=== PATIENT | female | born 1955 | race Caucasian/White ===

== ENCOUNTER 2018-12-19 06:16 | Observation (INO) | payer MEDICARE, MEDICAID ==
[2018-12-13 14:33] LABS: BASOPHILS % (AUTO) 0.4 % (0-1); EOSINOPHILS # (AUTO) 0.1 X10'3 (0-0.9); EOSINOPHILS % (AUTO) 1.3 % (0-6); LYMPHOCYTES # (AUTO) 1.8 X10'3 (1.1-4.8); LYMPHOCYTES % (AUTO) 23.9 % (21-51); MEAN CORPUSCULAR HGB CONC 33.6 g/dL (33.0-36.5); MEAN CORPUSCULAR VOLUME 95.3 FL (78-98); MEAN PLATELET VOLUME 7.7 FL (7.4-10.4); MONOCYTES # (AUTO) 0.7 X10'3 (0-0.9); MONOCYTES % (AUTO) 9.8 % (2-12); NEUTROPHILS # (AUTO) 4.8 X10'3 (1.8-7.7); NEUTROPHILS % (AUTO) 64.6 % (42-75); PRE OP HEMATOCRIT 42.7 % (35.0-45.0); PRE OP HEMOGLOBIN 14.3 g/dL (12.0-16.0); PRE OP PLATELET COUNT 265 X10'3 (140-440); RED BLOOD COUNT 4.48 X10'6 (4.20-5.60); RED CELL DISTRIBUTION WIDTH 13.7 % (11.5-14.5)
[2018-12-13 14:56] LABS: ALBUMIN 3.4 G/DL (3.4-5.0); ALBUMIN/GLOBULIN RATIO 0.9 (1.1-1.5); ALKALINE PHOSPHATASE 125 IU/L (46-116); BLOOD UREA NITROGEN 21 MG/DL (7-18); BUN/CREATININE RATIO 18.4 (6.6-38.0); CALCIUM 8.8 MG/DL (8.5-10.1); CHLORIDE 107 MMOL/L (99-107); CREATININE 1.14 MG/DL (0.40-0.90); PRE OP ALT 40 U/L (30-65); PRE OP ANION GAP 10 (8-16); PRE OP AST 29 U/L (10-37); PRE OP BILIRUB, TOTAL 0.2 MG/DL (0.0-1.0); PRE OP GLUCOSE 75 MG/DL (70-104); PRE OP POTASSIUM 3.9 MMOL/L (3.4-5.1); PRE OP SODIUM 141 MMOL/L (135-145); TOTAL CARBON DIOXIDE 23.6 MMOL/L (24-32); TOTAL PROTEIN 7.3 G/DL (6.4-8.2); eGFR 48 ML/MIN
[~2018-12-19] VITALS: Ht 157.5 cm; Wt 88.5 kg
[2018-12-19] VITALS (19 sets, daily range): BP systolic 92–139; BP diastolic 49–96
[~2018-12-19 06:16] MED LIST: ASPI-1265 PO; CETI-102 PO; DICL100G30 TOP; DULO30CA52 PO; DULO60CA65 PO; LEVO100T9 PO; LOSA100T57 PO
[2018-12-19] MEDS ORDERED: LIDOcaine 1% (10mg/ml) 2ml vial ONE (06:51)
[2018-12-19] MEDS ORDERED: cefazolin/dext.iso 2gm/100 ML IV ONE (07:30)
[2018-12-19] MEDS ORDERED: ringers solution, lacted 1,000 ML IV SCH ×2 (07:30→10:12)
[2018-12-19] MEDS ORDERED: tranexamic acid inj. 900 MG in normal saline 100ml IV soln 100 ML IV ONE ×2 (07:30→10:30)
[2018-12-19] MEDS ORDERED: VANCOMYCIN INJ 1000 MG in NORMAL SALINE 250ml IV.SOLN IV ONE (07:30)
[2018-12-19] MEDS ORDERED: famotidine 20mg tablet PO ONE (07:30)
[2018-12-19] MEDS ORDERED: LIDOcaine 1%/PF 5ML 10 MG/ML VIAL ONE (08:52)
[2018-12-19] MEDS ORDERED: sevoflurane 250ml liquid IH ONE (08:52)
[2018-12-19] MEDS ORDERED: fentaNYL/PF 50MCG/1 ML 2ML syringe ONE (09:01)
[2018-12-19] MEDS ORDERED: MIDAZolam 5mg/5ml vial ONE (09:01)
[2018-12-19] MEDS ORDERED: ROPIVAcaine 0.5% (5mg/ml) 30ml vial ONE ×2 (09:02→10:20)
[2018-12-19] MEDS ORDERED: propofol inj 20 ML IV ONE (09:30)
[2018-12-19] MEDS ORDERED: ondansetron/PF 4mg/2ml inj ONE (09:43)
[2018-12-19] MEDS ORDERED: dexamethasone sod phosphate 4mg/ml inj. ONE (09:43)
[2018-12-19] MEDS ORDERED: morphine 4 MG/ML inj SYRINge IV PRN ×2 (10:15)
[2018-12-19] MEDS ORDERED: meperidine/PF 25mg/ml syringe IV PRN ×3 (10:15)
[2018-12-19] MEDS ORDERED: ondansetron/PF 4mg/2ml inj IV PRN ×2 (10:15→11:30)
[2018-12-19] MEDS ORDERED: proCHLORperazine 10 MG/2 ml inj IV PRN (10:15)
[2018-12-19] MEDS ORDERED: ketorolac trometh. 30mg/ml inj. ONE (10:20)
[2018-12-19] MEDS ORDERED: ROPIVAcaine 0.2%/PF PAIN PUMP 400 ML IJ SCH (10:27)
[2018-12-19] MEDS ORDERED: HYDROmorphone inj. 0.5 MG/0.5 ML DISP.SYRIN IV PRN (11:30)
[2018-12-19] MEDS ORDERED: acetaminophen 325mg tablet PO PRN (11:30)
[2018-12-19] MEDS ORDERED: oxyCODONE IR 5mg (immed. release) tablet PO PRN (11:30)
[2018-12-19] MEDS ORDERED: magnesium hydroxide 30ml (MOM) UD suspension PO PRN (11:30)
[2018-12-19] MEDS ORDERED: bisacodyl 10mg suppository rectal RC PRN (11:30)
[2018-12-19] MEDS ORDERED: HYDROmorphone 1 mg/ml syringe IV PRN (11:30)
[2018-12-19] MEDS ORDERED: diphenhydrAMINE 25mg capsule PO PRN ×2 (11:30)
--- NOTE | 2018-12-19 11:35 | NUR ---
Received from OR via BED, accompanied by Anesthesiologist DR POLO and report given by Anesthesiologist. PT DROWSY, DENIES PAIN, MCCARTY'S X 4, HAS SOME SENSATION TO LEFT HAND/WRIST IS ABLE TO WIGGLE FINGERS. LEFT SHOULDER W/ISLAND DRSG COVERING INCISION, SHOULDER WRAP W/ICE PACK CDI. Addendum: 12/19/18 at 1207 by Leatha Hurst RN Amended: Links added.
--- NOTE | 2018-12-19 12:55 | NUR ---
Report called to receiving nurse. Transferred via BED, NO Belongings, RECEIVING RN AT BEDSIDE TO RECEIVE PT, BLL, CALL LIGHT GIVEN, SIDE RAILS UP X 2, PT REMAINS COMFORTABLE. Special Issues communicated to receiving nurse. YES. Addendum: 12/19/18 at 1315 by Leatha Hurst RN Amended: Links added.
[2018-12-19] MEDS: DICLOFENAC TOP SCH ×3 (13:00→20:38)
[2018-12-19] MEDS: acetaminophen 325mg tablet PO SCH ×2 (14:02→20:28)
[2018-12-19] MEDS: potassium cl 20mEq in 1/2 NS 1,000 ML IV SCH ×2 (14:07→20:39)
[2018-12-19] MEDS ORDERED: tranexamic acid inj. 880 MG in normal saline 100ml IV soln 100 ML IV ONE (14:30)
[2018-12-19] MEDS: ceFAZolin 1GM/D5W- ADD-VANTAGE 50 ML IV SCH ×2 (16:40→23:59)
[2018-12-19] MEDS: oxyCODONE IR 5mg (immed. release) tablet PO PRN ×2 (17:54→22:30)
[2018-12-19] MEDS ORDERED: vancomycin/NS 1 GM ADD-VANTAGE 250 ML IV SCH (20:00)
[2018-12-19] MEDS ORDERED: sennosides 8.6mg tablet PO SCH (21:00)
[2018-12-20] MEDS: oxyCODONE IR 5mg (immed. release) tablet PO PRN ×2 (02:07→05:45)
[2018-12-20] MEDS: acetaminophen 325mg tablet PO SCH ×2 (02:09→08:01)
[2018-12-20 02:38] VITALS: BP 121/70
[2018-12-20] MEDS: potassium cl 20mEq in 1/2 NS 1,000 ML IV SCH (05:40)
[2018-12-20 06:09] LABS: BASOPHILS % (AUTO) 0.1 % (0-1); EOSINOPHILS % (AUTO) 0 % (0-6); HEMATOCRIT 31.3 % (35.0-45.0); HEMOGLOBIN 10.5 g/dl (12.0-16.0); LYMPHOCYTES # (AUTO) 1.3 X10'3 (1.1-4.8); LYMPHOCYTES % (AUTO) 8.7 % (21-51); MEAN CORPUSCULAR HEMOGLOBIN 31.9 PG (27.0-31.0); MEAN CORPUSCULAR HGB CONC 33.6 g/dL (33.0-36.5); MEAN CORPUSCULAR VOLUME 94.7 FL (78-98); MEAN PLATELET VOLUME 7.7 FL (7.4-10.4); MONOCYTES # (AUTO) 1.6 X10'3 (0-0.9); MONOCYTES % (AUTO) 10.7 % (2-12); NEUTROPHILS # (AUTO) 12.1 X10'3 (1.8-7.7); NEUTROPHILS % (AUTO) 80.5 % (42-75); PLATELET COUNT 203 X10'3 (140-440); RED CELL DISTRIBUTION WIDTH 13.2 % (11.5-14.5)
[2018-12-20 06:22] LABS: ANION GAP 8 (8-16); CHLORIDE 109 MMOL/L (99-107); POTASSIUM 4.8 MMOL/L (3.5-5.1); SODIUM 139 MMOL/L (135-145); TOTAL CARBON DIOXIDE 22.5 MMOL/L (24-32)
--- NOTE | 2018-12-20 06:45 | NUR ---
Problems reprioritized. Patient report given, questions answered & plan of care reviewed with DAYSI CABAN.
--- NOTE | 2018-12-20 06:48 | NUR ---
Patient in room [facility]TH[facility] 4023. I have received report from DAYSI SNYDER and had the opportunity to ask questions and assume patient care.
[2018-12-20 07:07] VITALS: BP 114/72
[2018-12-20] MEDS ORDERED: aspirin 81mg tab.chew PO SCH (08:00)
[2018-12-20] MEDS ORDERED: cetirizine 10mg tablet PO SCH (08:00)
[2018-12-20] MEDS ORDERED: levoTHYROXINE 100mcg tablet PO SCH (08:00)
[2018-12-20] MEDS ORDERED: DULOXETINE HCL PO SCH (08:00)
[2018-12-20] MEDS: DICLOFENAC TOP SCH (08:00)
[2018-12-20] MEDS ORDERED: losartan 50mg tablet PO SCH (08:00)
[2018-12-20] MEDS ORDERED: duloxetine 30mg CAPSULE.DR PO SCH (08:00)
[2018-12-20] MEDS ORDERED: aspirin 325mg tablet PO SCH (08:30)
[2018-12-20] MEDS ORDERED: DICL100G15 TOP (08:43)
--- NOTE | 2018-12-20 09:43 | NUR ---
PATIENT IS A&O AND IN NO APPARENT DISTRESS. DISCUSSED WITH PATIENT DISCHARGE INSTRUCTION AND PRESCRIPTION. INSTRUCTION FOR ONQ GIVEN TO PATIENT AND ALSO DISCUSSED WHEN AND HOW TO REMOVE. . PATIENT VERBALIZES UNDERSTANDING OF TEACHING. PRESCRIPTION CALLED TO SHANNAN BRENNER. X2 ISLAND DRESSING GIVEN TO PATIENT AND SHE HAS HER COLD SANDBAG THERAPY ON HER LEFT SHOULDER WITH SLING ON. PATIENT IS AT BEDSIDE AND WILL BE PATIENT'S TRANSPORT HOME.
--- NOTE | 2018-12-20 09:52 | NUR ---
PATIENT A&O AND IN NO APPARENT DISTRESS AT TIME OF DISCHARGE. PATIENT DISCHARGED WITH ALL PERSONAL BELONGINGS ACCOMPANIED BY AND X1 STAFF.
[2018-12-21] MEDS ORDERED: acetaminophen 325mg tablet PO PRN (11:30)
== END 2018-12-20 10:00 | disposition home or self-care (01) ==
LOC: INTOOBSV 06:16 → PAS IN 06:16 → EDSTATUS 07:30 → ORTHO 4S 13:30
PROVIDERS: ADMIT Orthopaedic Surgery; ATTEND Orthopaedic Surgery
PROC: 0LS40ZZ Reposition Left Upper Arm Tendon, Open Approach (ICD-10-PCS; 2018-12-19)
PROC: 0RRK00Z Replacement of Left Shoulder Joint with Reverse Ball and Socket Synthetic Substitute, Open Approach (ICD-10-PCS; principal; 2018-12-19 09:02)
DX: M19.012 Primary osteoarthritis, left shoulder (principal); D62 Acute posthemorrhagic anemia; I10 Essential (primary) hypertension; E03.9 Hypothyroidism, unspecified; M25.512 Pain in left shoulder
CPT/HCPCS: 23472; 36415; 80051; 80053; 82948; 84443; 85025; 87081; 97110; 97161; 97530; C1776; G0378; J0690; J1100; J1885; J2001; J2250; J2405; J2704; J2795; J3010; J3370; J7120; Q0163; A4565; A4618; A7000; J3480

== ENCOUNTER 2019-03-30 02:48 | Emergency (ER) | payer MEDICARE, MEDICAID ==
[~2019-03-30] VITALS: Ht 157.5 cm; Wt 84.6 kg
[~2019-03-30 02:48] MED LIST changes: +DICL100G15 TOP
--- NOTE | 2019-03-30 03:40 | NUR ---
PT UP OUT OF BED TO ATTEMPT A VOID FOR A SPECIMAN . UNSUCCESSFUL
[2019-03-30 03:42] LABS: BASOPHILS % (AUTO) 0.4 % (0-1); EOSINOPHILS # (AUTO) 0.1 X10'3 (0-0.9); EOSINOPHILS % (AUTO) 0.6 % (0-6); HEMOGLOBIN 12.7 g/dl (12.0-16.0); LYMPHOCYTES # (AUTO) 1.5 X10'3 (1.1-4.8); LYMPHOCYTES % (AUTO) 14.1 % (21-51); MEAN CORPUSCULAR HEMOGLOBIN 30.3 PG (27.0-31.0); MEAN CORPUSCULAR HGB CONC 33.4 g/dL (33.0-36.5); MEAN CORPUSCULAR VOLUME 90.6 FL (78-98); MONOCYTES # (AUTO) 0.8 X10'3 (0-0.9); MONOCYTES % (AUTO) 7.9 % (2-12); NEUTROPHILS # (AUTO) 8.2 X10'3 (1.8-7.7); PLATELET COUNT 261 X10'3 (140-440); RED BLOOD COUNT 4.19 X10'6 (4.20-5.60); RED CELL DISTRIBUTION WIDTH 14.7 % (11.5-14.5); WHITE BLOOD COUNT 10.7 X10'3 (4.5-11.0)
[2019-03-30] MEDS ORDERED: morphine 4 MG/ML inj SYRINge IV ONE (03:55)
[2019-03-30] MEDS ORDERED: ondansetron/PF 4mg/2ml inj IV ONE (03:55)
--- NOTE | 2019-03-30 03:55 | NUR ---
PT TO CT VIA WHEEL CHAIR
[2019-03-30 03:58] LABS: ALANINE AMINOTRANSFERASE 19 U/L (12-78); ALBUMIN 3.2 G/DL (3.4-5.0); ALBUMIN/GLOBULIN RATIO 0.9 (1.1-1.5); ALKALINE PHOSPHATASE 120 IU/L (46-116); ANION GAP 11 (8-16); ASPARTATE AMINO TRANSFERASE 18 U/L (10-37); BILIRUBIN,TOTAL 0.2 MG/DL (0.1-1.0); BLOOD UREA NITROGEN 24 MG/DL (7-18); BUN/CREATININE RATIO 18.9 (6.6-38.0); CALCIUM 8.3 MG/DL (8.5-10.1); CHLORIDE 107 MMOL/L (99-107); CREATININE 1.27 MG/DL (0.40-0.90); GLUCOSE 141 MG/DL (70-104); LIPASE 840 U/L (73-393); POTASSIUM 4.3 MMOL/L (3.5-5.1); SODIUM 141 MMOL/L (135-145); TOTAL CARBON DIOXIDE 23.1 MMOL/L (24-32); TOTAL PROTEIN 6.8 G/DL (6.4-8.2); eGFR 42 ML/MIN
[2019-03-30] MEDS ORDERED: ketorolac tromethamine 15mg/ml inj. IV ONE (05:00)
--- NOTE | 2019-03-30 05:05 | NUR ---
PT COMFORTABLE. CT SHOWS LEFT SIDE 1-2 MM KIDNEY STONE . UPDATED POC WITH PATIENT . NOTIFIED DR SUGGS OF CT RESULTS AND PT REQUEST TO HAVE WATER. ENCOURAGED PT TO HAVE WATER SO A URINE SPECIMAN CAN BE OBTAINED
[2019-03-30] MEDS ORDERED: ONDA4TAB6 PO ×2 (05:20→05:38)
[2019-03-30] MEDS ORDERED: HYDR-4353 PO ×2 (05:20→05:38)
[2019-03-30] MEDS ORDERED: TADA20TA PO ×2 (05:20→05:38)
[2019-03-30 05:40] LABS: CLARITY,URINE SLIGHTLY CLOUDY (Clear); COLOR,URINE YELLOW (Yellow); GLUCOSE, URINE NEGATIVE (Neg); KETONES,URINE NEGATIVE (Neg); LEUKOCYTE ESTERASE ,URINE NEGATIVE (Neg); NITRITES, URINE NEGATIVE (Neg); OCCULT BLOOD,URINE MODERATE (Neg); PH,URINE 5.5 (4.8-8.0); PROTEIN,URINE NEGATIVE (Neg); UROBILINOGEN,URINE 0.2 E.U/dL (0.2-1.0)
[2019-03-30 05:41] LABS: UA COLLECTION TYPE CLN CATCH MIDSTREAM
[2019-03-30 05:51] LABS: BACTERIA,URINE FEW /HPF (Neg); CAL OXALATE CRYSTALS 3+ /HPF (NEGATIVE); MUCUS STRANDS NONE SEEN /LPF (Neg); RBC,URINE 20-50 /HPF (0-2); SQUAMOUS EPITHELIAL CELL,UR FEW /LPF (FEW); WBC,URINE 0-4 /HPF (0-4)
[2019-03-30 06:05] VITALS: BP 156/72
== END 2019-03-30 05:45 | disposition home or self-care (01) ==
LOC: ER 02:49
DX: R10.32 Left lower quadrant pain (principal); N20.0 Calculus of kidney; N18.9 Chronic kidney disease, unspecified; Z98.0 Intestinal bypass and anastomosis status; Z98.890 Other specified postprocedural states; Z91.013 Allergy to seafood; Z91.018 Allergy to other foods; Z79.82 Long term (current) use of aspirin; Z79.899 Other long term (current) drug therapy
CPT/HCPCS: 36415; 74176; 80053; 81001; 83690; 85025; 96374; 96375; 99284; J1885; J2270; J2405

== ENCOUNTER 2019-06-21 07:11 | Emergency (ER) | payer MEDICARE, MEDICAID ==
[~2019-06-21] VITALS: Ht 157.5 cm; Wt 90.0 kg
[~2019-06-21 07:11] MED LIST changes: -CETI-102 PO; +CETI-90 PO; +HYDR-4353 PO; +ONDA4TAB6 PO; +TADA20TA PO
[2019-06-21] MEDS ORDERED: SUMAtriptan succ. 6 MG/0.5ml vial SQ ONE (08:35)
[2019-06-21 09:25] VITALS: BP 152/72
[2019-06-21] MEDS ORDERED: SUMA25TA35 PO (09:52)
== END 2019-06-21 10:45 | disposition home or self-care (01) ==
LOC: ER 07:12
DX: G43.909 Migraine, unspecified, not intractable, without status migrainosus (principal); Z98.0 Intestinal bypass and anastomosis status; Z98.890 Other specified postprocedural states; Z91.018 Allergy to other foods; Z91.013 Allergy to seafood; Z88.1 Allergy status to other antibiotic agents; Z88.2 Allergy status to sulfonamides; Z79.82 Long term (current) use of aspirin; Z79.899 Other long term (current) drug therapy
CPT/HCPCS: 96372; 99284; J3030

== ENCOUNTER 2019-07-03 18:40 | Emergency (ER) | payer MEDICARE, MEDICAID ==
[~2019-07-03] VITALS: Ht 157.5 cm; Wt 90.9 kg
[~2019-07-03 18:40] MED LIST changes: +SUMA25TA35 PO
[2019-07-03 20:51] LABS: ALANINE AMINOTRANSFERASE 19 U/L (12-78); ALBUMIN 3.4 G/DL (3.4-5.0); ALBUMIN/GLOBULIN RATIO 0.9 (1.1-1.5); ALKALINE PHOSPHATASE 139 IU/L (46-116); ANION GAP 11 (8-16); BILIRUBIN,TOTAL 0.2 MG/DL (0.1-1.0); BLOOD UREA NITROGEN 18 MG/DL (7-18); BUN/CREATININE RATIO 18.6 (6.6-38.0); CALCIUM 9.6 MG/DL (8.5-10.1); CHLORIDE 108 MMOL/L (99-107); CREATININE 0.97 MG/DL (0.40-0.90); GLUCOSE 96 MG/DL (70-104); SODIUM 141 MMOL/L (135-145); TOTAL CARBON DIOXIDE 22.5 MMOL/L (24-32); TOTAL PROTEIN 7.3 G/DL (6.4-8.2); eGFR 58 ML/MIN
[2019-07-03 20:52] LABS: ASPARTATE AMINO TRANSFERASE 23 U/L (10-37); POTASSIUM 4.8 MMOL/L (3.5-5.1)
[2019-07-03 21:16] LABS: BASOPHILS # (AUTO) 0.1 X10'3 (0-0.2); BASOPHILS % (AUTO) 0.8 % (0-1); EOSINOPHILS # (AUTO) 0.2 X10'3 (0-0.9); EOSINOPHILS % (AUTO) 2.7 % (0-6); HEMATOCRIT 39.6 % (35.0-45.0); HEMOGLOBIN 13.2 g/dl (12.0-16.0); LYMPHOCYTES # (AUTO) 2.7 X10'3 (1.1-4.8); LYMPHOCYTES % (AUTO) 36.2 % (21-51); MEAN CORPUSCULAR HEMOGLOBIN 29.2 PG (27.0-31.0); MEAN CORPUSCULAR HGB CONC 33.3 g/dL (33.0-36.5); MEAN CORPUSCULAR VOLUME 87.6 FL (78-98); MEAN PLATELET VOLUME 7.3 FL (7.4-10.4); MONOCYTES % (AUTO) 13.6 % (2-12); NEUTROPHILS # (AUTO) 3.5 X10'3 (1.8-7.7); NEUTROPHILS % (AUTO) 46.7 % (42-75); PLATELET COUNT 325 X10'3 (140-440); RED BLOOD COUNT 4.52 X10'6 (4.20-5.60); RED CELL DISTRIBUTION WIDTH 14.6 % (11.5-14.5); WHITE BLOOD COUNT 7.5 X10'3 (4.5-11.0)
[2019-07-03] MEDS ORDERED: DOXY100C2 PO (21:34)
[2019-07-03] MEDS ORDERED: MET0.75G TP (21:34)
[2019-07-03] MEDS ORDERED: cloNIDine 0.1 mg tablet PO ONE (21:40)
[2019-07-03 22:47] VITALS: BP 168/110
[2019-07-05] MEDS ORDERED: PRED50TA PO (20:04)
== END 2019-07-03 22:43 | disposition home or self-care (01) ==
LOC: ER 18:41
DX: R21 Rash and other nonspecific skin eruption (principal); G43.909 Migraine, unspecified, not intractable, without status migrainosus; E03.9 Hypothyroidism, unspecified; Z98.890 Other specified postprocedural states; Z91.018 Allergy to other foods; Z88.8 Allergy status to other drugs, medicaments and biological substances; Z79.82 Long term (current) use of aspirin; Z79.899 Other long term (current) drug therapy
CPT/HCPCS: 36415; 71045; 80053; 84484; 85025; 93005; 99285

== ENCOUNTER 2019-09-15 09:35 | Emergency (ER) | payer MEDICARE, MEDICAID ==
[~2019-09-15] VITALS: Ht 157.5 cm; Wt 91.5 kg
[~2019-09-15 09:35] MED LIST changes: +ASPI-1 PO; -ASPI-1265 PO; -DICL100G15 TOP; -DULO30CA52 PO; -DULO60CA65 PO; +FLUT16SP2 BOTHNARES; -LEVO100T9 PO; -LOSA100T57 PO; +LOSA25TA96 PO; +MULT-1219 PO; -ONDA4TAB6 PO; +ONQPUMP ADDCANAL; -SUMA25TA35 PO; +SUMA50TA PO; +SYN0.088T PO; -TADA20TA PO
[2019-09-15 09:40] VITALS: BP 148/81
[2019-09-15] MEDS ORDERED: HYDR-4353 PO (10:19)
[2019-09-15] MEDS ORDERED: HYDROcodone/acetaminophen 10/325mg tab PO ONE (10:35)
== END 2019-09-15 10:46 | disposition home or self-care (01) ==
LOC: ER 09:36
DX: T84.84XA Pain due to internal orthopedic prosthetic devices, implants and grafts, initial encounter (principal); M25.561 Pain in right knee; E03.9 Hypothyroidism, unspecified; Z98.0 Intestinal bypass and anastomosis status; Z98.890 Other specified postprocedural states; Z91.013 Allergy to seafood; Z88.2 Allergy status to sulfonamides; Z88.1 Allergy status to other antibiotic agents; Z91.018 Allergy to other foods; Z79.82 Long term (current) use of aspirin; Z79.899 Other long term (current) drug therapy; Y83.9 Surgical procedure, unspecified as the cause of abnormal reaction of the patient, or of later complication, without mention of misadventure at the time of the procedure; Y92.89 Other specified places as the place of occurrence of the external cause
CPT/HCPCS: 99284

== ENCOUNTER 2019-09-28 08:32 | Emergency (ER) | payer MEDICARE, MEDICAID ==
[~2019-09-28] VITALS: Ht 157.5 cm; Wt 91.8 kg
[2019-09-28] MEDS ORDERED: ketorolac tromethamine 15mg/ml inj. IM ONE (09:45)
[2019-09-28] MEDS ORDERED: gabapentin 400mg capsule PO STA (09:48)
[2019-09-28] MEDS ORDERED: gabapentin 300mg capsule PO STA (09:50)
[2019-09-28] MEDS ORDERED: GABA300C PO (09:51)
[2019-09-28 10:40] VITALS: BP 134/86
== END 2019-09-28 10:43 | disposition home or self-care (01) ==
LOC: ER 08:33
DX: G89.18 Other acute postprocedural pain (principal); M25.561 Pain in right knee; M17.11 Unilateral primary osteoarthritis, right knee; G43.909 Migraine, unspecified, not intractable, without status migrainosus; I10 Essential (primary) hypertension; E03.9 Hypothyroidism, unspecified; Z90.49 Acquired absence of other specified parts of digestive tract; Z98.890 Other specified postprocedural states; Z91.018 Allergy to other foods; Z88.2 Allergy status to sulfonamides; Z91.013 Allergy to seafood; Z88.8 Allergy status to other drugs, medicaments and biological substances; Z79.82 Long term (current) use of aspirin; Z79.899 Other long term (current) drug therapy
CPT/HCPCS: 96372; 99283; J1885

== ENCOUNTER 2021-02-23 08:41 | Inpatient (IN) | payer MEDICARE, MEDICAID ==
[~2021-02-23] VITALS: Ht 157.5 cm; Wt 86.4 kg
[~2021-02-23 08:41] MED LIST changes: +GABA300C PO
[2021-02-23] MEDS ORDERED: acetaminophen 325mg tablet PO STA (08:56)
[2021-02-23] MEDS ORDERED: aspirin 325mg tablet, delayed-release (Ecotrin) PO ONE (09:05)
[2021-02-23 09:24] LABS: BASOPHILS % (AUTO) 0.7 % (0-1); EOSINOPHILS # (AUTO) 0.1 X10'3 (0-0.9); EOSINOPHILS % (AUTO) 1.2 % (0-6); HEMATOCRIT 38.4 % (35.0-45.0); HEMOGLOBIN 12.7 g/dl (12.0-16.0); LYMPHOCYTES # (AUTO) 1.3 X10'3 (1.1-4.8); LYMPHOCYTES % (AUTO) 17.9 % (21-51); MEAN CORPUSCULAR HEMOGLOBIN 28.2 PG (27.0-31.0); MEAN CORPUSCULAR VOLUME 85.6 FL (78-98); MEAN PLATELET VOLUME 6.7 FL (7.4-10.4); MONOCYTES # (AUTO) 0.5 X10'3 (0-0.9); MONOCYTES % (AUTO) 7.2 % (2-12); NEUTROPHILS # (AUTO) 5.2 X10'3 (1.8-7.7); PLATELET COUNT 451 X10'3 (140-440); RED BLOOD COUNT 4.48 X10'6 (4.20-5.60); RED CELL DISTRIBUTION WIDTH 15.5 % (11.5-14.5); WHITE BLOOD COUNT 7.1 X10'3 (4.5-11.0)
[2021-02-23] MEDS ORDERED: DEXAMETHASONE 6 MG TABLET PO ONE (09:28)
[2021-02-23 09:40] LABS: PARTIAL THROMBOPLASTIN TIME 23 SECONDS (22-32)
[2021-02-23 09:43] LABS: ALANINE AMINOTRANSFERASE 12 U/L (12-78); ALBUMIN 2.8 G/DL (3.4-5.0); ALBUMIN/GLOBULIN RATIO 0.6 (1.1-1.5); ALKALINE PHOSPHATASE 129 IU/L (46-116); ANION GAP 8 (8-16); ASPARTATE AMINO TRANSFERASE 14 U/L (10-37); BILIRUBIN,TOTAL 0.4 MG/DL (0.1-1.0); BLOOD UREA NITROGEN 13 MG/DL (7-18); BUN/CREATININE RATIO 13.1 (6.6-38.0); CALCIUM 8.8 MG/DL (8.5-10.1); CHLORIDE 104 MMOL/L (99-107); CREATININE 0.99 MG/DL (0.40-0.90); GLUCOSE 86 MG/DL (70-104); POTASSIUM 4.2 MMOL/L (3.5-5.1); SODIUM 138 MMOL/L (135-145); TOTAL CARBON DIOXIDE 25.6 MMOL/L (24-32); TOTAL PROTEIN 7.8 G/DL (6.4-8.2); eGFR 56 ML/MIN
[2021-02-23 09:51] LABS: C-REACTIVE PROTEIN 0.48 MG/DL (0.0-0.5); MAGNESIUM 1.9 MG/DL (1.5-2.4)
[2021-02-23] MEDS ORDERED: iohexol 350MG/ML 100ml bottle IV ONE (10:22)
[2021-02-23] MEDS ORDERED: CASIRIVIMAB/IMDEVIMAB inject. 10 ML in normal saline 100ml IV soln 100 ML IV ONE (12:00)
[2021-02-23] MEDS ORDERED: BAMLANIVIMAB 700MG, ETESEVIMAB 1,400MG in NS 100mL (Total vol 160ml) IV ONE (12:25)
[2021-02-23] MEDS ORDERED: heparin 10,000 units/1 ML INJ IV ONE ×3 (12:55→13:00)
[2021-02-23] MEDS ORDERED: heparin 25,000 UNIT/250ml bag 250 ML IV SCH (12:55)
[2021-02-23] MEDS ORDERED: heparin 10,000 units/1 ML INJ IV PRN (13:00)
[2021-02-23] MEDS ORDERED: ipratropium/albuterol 3ml nebule NEB PRN (13:05)
[2021-02-23] MEDS ORDERED: ondansetron/PF 4mg/2ml inj IV PRN (13:05)
[2021-02-23] MEDS ORDERED: magnesium hydroxide 30ml (MOM) UD suspension PO PRN (13:05)
[2021-02-23] MEDS ORDERED: mag hydrox/Alum hydrox/simeth 30ml oral suspension PO PRN (13:05)
[2021-02-23] MEDS ORDERED: morphine 2 MG/ML inj. syringe IV PRN ×2 (13:05)
[2021-02-23] MEDS ORDERED: CASIRIVIMAB/IMDEVIMAB inject. 10 ML in normal saline 100ml IV soln 100 ML IV SCH (13:05)
[2021-02-23] MEDS ORDERED: CefTRIAXone/D5W-Rocephin 1gm 50 ML IV ONE (13:10)
[2021-02-23] MEDS ORDERED: azithromycin/NS 500mg/250ml 250 ML IV ONE (13:10)
[2021-02-23] MEDS ORDERED: LOSA50TA64 PO (13:11)
[2021-02-23] MEDS ORDERED: LEVO112T5 PO (13:11)
[2021-02-23] MEDS ORDERED: GABA300C PO (13:11)
[2021-02-23] MEDS ORDERED: MONT-40 PO (13:11)
[2021-02-23] MEDS ORDERED: TRAZ-251 PO (13:11)
--- NOTE | 2021-02-23 13:28 | NUR ---
c/o discomfort right flank pain 12/09
[2021-02-23] MEDS: heparin 25,000 UNIT/250ml bag 250 ML IV SCH (14:03)
--- NOTE | 2021-02-23 14:36 | NUR ---
ATTEMPT TO GIVE PATIENT MEAL TRAY, BREAK NURSE MADE ME AWARE PATIENT IS NPO AT THIS TIME.
[2021-02-23 14:47] LABS: HEMOGLOBIN A1C 5.5 % (4.5-6.2)
[2021-02-23] MEDS: pantoprazole 40 MG vial IV SCH (14:50)
[2021-02-23 19:30] VITALS: BP 114/52
--- NOTE | 2021-02-23 20:16 | NUR ---
Received critical PTT of [address] Fitzpatrick who said to follow the protocol on the emar. Will hold heparin for 120mins and follow instructions.
[2021-02-23] MEDS: gabapentin 300mg capsule PO SCH (20:36)
[2021-02-23] MEDS: docusate sod 100mg capsule PO SCH (20:36)
[2021-02-23 22:00] VITALS: BP 117/69
[2021-02-24 02:00] VITALS: BP 105/57
[2021-02-24 06:00] VITALS: BP 113/71
--- NOTE | 2021-02-24 06:18 | NUR ---
Patient in room [facility]TH[facility] 4023A. I have received report from DAYSI MACKENZIE and had the opportunity to ask questions and assume patient care.
[2021-02-24 07:56] LABS: BASOPHILS # (AUTO) 0.1 X10'3 (0-0.2); BASOPHILS % (AUTO) 1.1 % (0-1); EOSINOPHILS % (AUTO) 0.4 % (0-6); HEMATOCRIT 33.4 % (35.0-45.0); HEMOGLOBIN 11.2 g/dl (12.0-16.0); LYMPHOCYTES # (AUTO) 1.8 X10'3 (1.1-4.8); LYMPHOCYTES % (AUTO) 19.9 % (21-51); MEAN CORPUSCULAR HEMOGLOBIN 28.5 PG (27.0-31.0); MEAN CORPUSCULAR HGB CONC 33.5 g/dL (33.0-36.5); MEAN CORPUSCULAR VOLUME 85.1 FL (78-98); MEAN PLATELET VOLUME 6.9 FL (7.4-10.4); MONOCYTES # (AUTO) 0.6 X10'3 (0-0.9); MONOCYTES % (AUTO) 6.9 % (2-12); NEUTROPHILS # (AUTO) 6.4 X10'3 (1.8-7.7); NEUTROPHILS % (AUTO) 71.7 % (42-75); PLATELET COUNT 417 X10'3 (140-440); RED BLOOD COUNT 3.93 X10'6 (4.20-5.60); RED CELL DISTRIBUTION WIDTH 15.3 % (11.5-14.5); WHITE BLOOD COUNT 8.9 X10'3 (4.5-11.0)
[2021-02-24] MEDS ORDERED: DEXAMETHASONE 6 MG TABLET PO SCH ×2 (08:00→09:20)
[2021-02-24] MEDS ORDERED: traZODone 50mg tablet PO SCH (08:00)
[2021-02-24 08:20] LABS: ALANINE AMINOTRANSFERASE 15 U/L (12-78); ALBUMIN 2.7 G/DL (3.4-5.0); ALBUMIN/GLOBULIN RATIO 0.6 (1.1-1.5); ALKALINE PHOSPHATASE 115 IU/L (46-116); ANION GAP 9 (8-16); ASPARTATE AMINO TRANSFERASE 14 U/L (10-37); BILIRUBIN,TOTAL 0.2 MG/DL (0.1-1.0); BLOOD UREA NITROGEN 20 MG/DL (7-18); BUN/CREATININE RATIO 18.9 (6.6-38.0); CALCIUM 9.3 MG/DL (8.5-10.1); CHLORIDE 105 MMOL/L (99-107); CHOLESTEROL 146 MG/DL (0-200); CREATININE 1.06 MG/DL (0.40-0.90); GLUCOSE 102 MG/DL (70-104); HDL CHOLESTEROL 49 MG/DL (35-60); LDL CHOLESTEROL 78 MG/DL (50-100); POTASSIUM 4.4 MMOL/L (3.5-5.1); SODIUM 139 MMOL/L (135-145); TOTAL CARBON DIOXIDE 25.4 MMOL/L (24-32); TOTAL PROTEIN 7.1 G/DL (6.4-8.2); TRIGLYCERIDES 49 MG/DL (20-135); eGFR 52 ML/MIN
[2021-02-24] MEDS: pantoprazole 40 MG vial IV SCH (08:52)
[2021-02-24] MEDS: levoTHYROXINE 112mcg tablet PO SCH (08:54)
[2021-02-24] MEDS: montelukast 10mg tablet PO SCH (08:54)
[2021-02-24] MEDS: gabapentin 300mg capsule PO SCH ×3 (08:55→21:06)
[2021-02-24] MEDS: docusate sod 100mg capsule PO SCH ×2 (08:55→21:06)
[2021-02-24] MEDS: losartan 50mg tablet PO SCH (08:55)
[2021-02-24] MEDS: acetaminophen 325mg tablet PO PRN ×2 (08:58→21:05)
[2021-02-24 10:00] VITALS: BP 105/61
[2021-02-24] MEDS ORDERED: FLU VACC QS2021-22(6MOS UP)/PF 60 MCG/0.5 ML SYRINGE IM ONE (10:00)
--- NOTE | 2021-02-24 10:07 | NUR ---
Page Sent PAGER ID: [phone] MESSAGE: [id number] RE: MELISSA MANCIA [id number] CAN WE CHANGE SCHEDULED TRAZADONE TO A PM MED? PT SAYS SHE USES IT AT NIGHT TO SLEEP. THANK YOU!
[2021-02-24] MEDS: heparin 25,000 UNIT/250ml bag 250 ML IV SCH (11:15)
[2021-02-24] MEDS: CefTRIAXone/D5W-Rocephin 1gm 50 ML IV SCH (11:15)
[2021-02-24] MEDS: azithromycin/NS 500mg/250ml 250 ML IV SCH (12:35)
--- NOTE | 2021-02-24 13:05 | NUR ---
Page Sent PAGER ID: [phone] MESSAGE: [id number] RE: MELISSA MANCIA [id number] PT HAS EKG SERIES ORDERED, WAS NOT DONE. WOULD YOU LIKE AN EKG ON PT? THE ONE FROM ER YESTERDAY SHOWS SINUS RHYTHM. THANKS!
[2021-02-24 14:00] VITALS: BP 139/76
--- NOTE | 2021-02-24 14:03 | NUR ---
Malnutrition Consult: Pt admit DX COVID-19 reports 2-13 pound wt loss past 3 months per EMR. Pt has normal strength, no edema/wounds, no scaled wt this admit though prior admit August 2019 93kg scaled wt, and appears WD/WN per MD note. PO 50% first heart healthy meal. 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 Will monitor for further malnutrition criteria this admit. Addendum: 02/24/21 at [address] Amended: Links added.
--- NOTE | 2021-02-24 18:16 | NUR ---
Problems reprioritized. Patient report given, questions answered & plan of care reviewed with DAYSI WOOD.
[2021-02-24] MEDS: lactobacillus rhamnosus 10,000 MMU CELLS/CAPSULE PO SCH (21:06)
[2021-02-24] MEDS: traZODone 50mg tablet PO PRN (21:17)
[2021-02-24 22:00] VITALS: BP 92/43
[2021-02-24 22:05] VITALS: BP 94/38
[2021-02-24] MEDS ORDERED: ringers solution, lactated 500ml IV solution IV ONE (23:15)
[2021-02-25] MEDS: ringers solution, lacted 1,000 ML IV SCH ×2 (00:59→12:35)
[2021-02-25 02:00] VITALS: BP 90/51
[2021-02-25 03:00] VITALS: BP 97/55
--- NOTE | 2021-02-25 03:41 | NUR ---
0300 pt difficult stick . ptt sent to lab
--- NOTE | 2021-02-25 03:42 | NUR ---
notified by lab too much blood in blood tube. another rn to redraw.
--- NOTE | 2021-02-25 03:56 | NUR ---
02/24/212299 dr torres was notfied by charge nurse of pt admitted with covid. bp low 92/43 p 80 .pt asymtomatic . also notified that pt started bp meds on day shift , gabapentin and trazadone tonight . new order received ivfs
[2021-02-25] MEDS: heparin 25,000 UNIT/250ml bag 250 ML IV SCH (05:38)
[2021-02-25] MEDS: acetaminophen 325mg tablet PO PRN ×2 (06:12→20:38)
--- NOTE | 2021-02-25 06:39 | NUR ---
spoke to pepe in pharmacy regarding heparin gtt . heparin gtt was therapeutic this am so heparin drip remained the same at 1200u/hr ephraim stated pharmacist was not available
[2021-02-25] MEDS: losartan 50mg tablet PO SCH (08:00)
[2021-02-25] MEDS: gabapentin 300mg capsule PO SCH ×2 (08:13→20:37)
[2021-02-25] MEDS: levoTHYROXINE 112mcg tablet PO SCH (08:13)
[2021-02-25] MEDS: montelukast 10mg tablet PO SCH (08:13)
[2021-02-25] MEDS: docusate sod 100mg capsule PO SCH ×2 (08:13→20:37)
[2021-02-25] MEDS: lactobacillus rhamnosus 10,000 MMU CELLS/CAPSULE PO SCH ×2 (08:14→20:37)
[2021-02-25] MEDS: azithromycin/NS 500mg/250ml 250 ML IV SCH (08:16)
[2021-02-25] MEDS: CefTRIAXone/D5W-Rocephin 1gm 50 ML IV SCH (08:16)
[2021-02-25] MEDS: pantoprazole 40 MG vial IV SCH (08:16)
[2021-02-25 12:17] LABS: ALANINE AMINOTRANSFERASE 16 U/L (12-78); ALBUMIN 2.5 G/DL (3.4-5.0); ALBUMIN/GLOBULIN RATIO 0.7 (1.1-1.5); ALKALINE PHOSPHATASE 99 IU/L (46-116); ANION GAP 5 (8-16); ASPARTATE AMINO TRANSFERASE 16 U/L (10-37); BILIRUBIN,TOTAL 0.2 MG/DL (0.1-1.0); BLOOD UREA NITROGEN 21 MG/DL (7-18); CALCIUM 8.6 MG/DL (8.5-10.1); CHLORIDE 106 MMOL/L (99-107); GLUCOSE 86 MG/DL (70-104); POTASSIUM 4.3 MMOL/L (3.5-5.1); SODIUM 137 MMOL/L (135-145); TOTAL CARBON DIOXIDE 26.5 MMOL/L (24-32); TOTAL PROTEIN 6.3 G/DL (6.4-8.2); eGFR 55 ML/MIN
[2021-02-25 18:00] VITALS: BP 130/65
[2021-02-25] MEDS: traZODone 50mg tablet PO PRN (20:37)
[2021-02-25 22:00] VITALS: BP 109/50
[2021-02-26 02:00] VITALS: BP 114/60
[2021-02-26] MEDS: ringers solution, lacted 1,000 ML IV SCH (02:50)
[2021-02-26] MEDS: acetaminophen 325mg tablet PO PRN (04:57)
--- NOTE | 2021-02-26 06:40 | NUR ---
Patient in room [facility]TH[facility] 4024. I have received report from Tamra TAVAREZ and had the opportunity to ask questions and assume patient care.
--- NOTE | 2021-02-26 06:40 | NUR ---
Problems reprioritized. Patient report given, questions answered & plan of care reviewed with DAYSI De Anda.
[2021-02-26 08:20] LABS: BASOPHILS % (AUTO) 0.8 % (0-1); EOSINOPHILS # (AUTO) 0.1 X10'3 (0-0.9); HEMATOCRIT 29.4 % (35.0-45.0); HEMOGLOBIN 9.8 g/dl (12.0-16.0); LYMPHOCYTES # (AUTO) 1.8 X10'3 (1.1-4.8); LYMPHOCYTES % (AUTO) 32.8 % (21-51); MEAN CORPUSCULAR HEMOGLOBIN 28.6 PG (27.0-31.0); MEAN CORPUSCULAR HGB CONC 33.3 g/dL (33.0-36.5); MEAN CORPUSCULAR VOLUME 85.9 FL (78-98); MEAN PLATELET VOLUME 7.7 FL (7.4-10.4); MONOCYTES # (AUTO) 0.5 X10'3 (0-0.9); MONOCYTES % (AUTO) 9.6 % (2-12); NEUTROPHILS % (AUTO) 54.8 % (42-75); PLATELET COUNT 355 X10'3 (140-440); RED BLOOD COUNT 3.43 X10'6 (4.20-5.60); RED CELL DISTRIBUTION WIDTH 15.8 % (11.5-14.5); WHITE BLOOD COUNT 5.4 X10'3 (4.5-11.0)
[2021-02-26] MEDS: gabapentin 300mg capsule PO SCH (08:24)
[2021-02-26] MEDS: pantoprazole 40 MG vial IV SCH (08:24)
[2021-02-26] MEDS: CefTRIAXone/D5W-Rocephin 1gm 50 ML IV SCH (08:24)
[2021-02-26] MEDS: lactobacillus rhamnosus 10,000 MMU CELLS/CAPSULE PO SCH (08:24)
[2021-02-26] MEDS: levoTHYROXINE 112mcg tablet PO SCH (08:25)
[2021-02-26] MEDS: montelukast 10mg tablet PO SCH (08:25)
[2021-02-26] MEDS: docusate sod 100mg capsule PO SCH (08:25)
[2021-02-26] MEDS: losartan 50mg tablet PO SCH (08:25)
[2021-02-26 08:38] LABS: ALANINE AMINOTRANSFERASE 10 U/L (12-78); ALBUMIN 2.2 G/DL (3.4-5.0); ALBUMIN/GLOBULIN RATIO 0.6 (1.1-1.5); ALKALINE PHOSPHATASE 88 IU/L (46-116); ANION GAP 9 (8-16); ASPARTATE AMINO TRANSFERASE 13 U/L (10-37); BILIRUBIN,TOTAL 0.2 MG/DL (0.1-1.0); BLOOD UREA NITROGEN 17 MG/DL (7-18); BUN/CREATININE RATIO 19.1 (6.6-38.0); CALCIUM 8.9 MG/DL (8.5-10.1); CHLORIDE 109 MMOL/L (99-107); CREATININE 0.89 MG/DL (0.40-0.90); GLUCOSE 84 MG/DL (70-104); POTASSIUM 4.5 MMOL/L (3.5-5.1); SODIUM 141 MMOL/L (135-145); TOTAL CARBON DIOXIDE 23.1 MMOL/L (24-32); TOTAL PROTEIN 5.8 G/DL (6.4-8.2); eGFR 63 ML/MIN
[2021-02-26] MEDS: azithromycin/NS 500mg/250ml 250 ML IV SCH (09:55)
[2021-02-26 10:00] VITALS: BP 125/65
--- NOTE | 2021-02-26 11:31 | NUR ---
PAGER ID: [phone] MESSAGE: Neetu [phone] re: Kala Etienne. Pt states she's going home today, still on Hep drip. PTT continues to be therapeutic. Do you want to transition to another blood thinner?
[2021-02-26] MEDS ORDERED: apixaban 5mg tablet PO SCH (12:15)
--- NOTE | 2021-02-26 12:27 | NUR ---
Initial: Pt admit DX COVID-19, PE, bilateral PNA, and small R pleural effusion per EMR. PO improving initially 25-50% avg heart healthy meals now 75-100% since lunch yesterday. Overall partially meeting needs though if new PO trends persist will meet estimated needs. LBM 02/22 receiving routine colace; may benefit from additional bowel care w/ 4 days constipation if MD agreeable. Will continue to monitor for nutrition intervention needs. Rec: 1. continue heart healthy diet; encourage PO 2. monitor for ONS needs pending further PO trends 3. routine bowel care; 4 days constipation 4. scaled wt this admit; subsequent weekly wts Addendum: 02/26/21 at [address] Amended: Links added.
--- NOTE | 2021-02-26 13:06 | NUR ---
O2 Sat at rest on room air:__96_% If below 89%: Recovery O2 Sat at rest on ___LPM:___%:___% via (mask/nasal cannula, etc..) No further documentation is necessary. If O2 Sat did not drop below 89% on room air,ambulate patient on room air. O2 Sat while ambulating on room air:_96__% Recovery O2 Sat while ambulating on ___LPM:___% No further documentation is necessary. If patient does not drop below 89% while ambulating, he/she does not qualify for home O2.
[2021-02-26] MEDS ORDERED: DEXAMETHASONE 6 MG TABLET PO ONE (13:10)
[2021-02-26] MEDS ORDERED: LACT1CAP26 PO (13:11)
[2021-02-26] MEDS ORDERED: APIX5TAB3 PO (13:11)
[2021-02-26] MEDS ORDERED: CEFD300C3 PO (13:11)
[2021-02-26] MEDS ORDERED: DEXA6TAB PO (13:11)
[2021-02-26] MEDS ORDERED: ALBU8.5H17 INH (13:15)
--- NOTE | 2021-02-26 15:25 | NUR ---
[place] documentation: I have reviewed and agree with all interventions, assessments performed and documented by Neetu Buckley RN.
[2021-02-27] MEDS ORDERED: pantoprazole 40mg Tablet.DR PO SCH (07:30)
== END 2021-02-26 14:50 | disposition home or self-care (01) | DRG 177 ==
LOC: ER 08:42 → ED HOLD 13:12 → ORTHO 4S 19:35
PROVIDERS: ADMIT Internal Medicine; ATTEND Internal Medicine
PROC: XW033F6 Introduction of Bamlanivimab Monoclonal Antibody into Peripheral Vein, Percutaneous Approach, New Technology Group 6 (ICD-10-PCS; principal; 2021-02-23)
PROC: XW033E6 Introduction of Etesevimab Monoclonal Antibody into Peripheral Vein, Percutaneous Approach, New Technology Group 6 (ICD-10-PCS; 2021-02-23)
PROC: B32T1ZZ Computerized Tomography (CT Scan) of Left Pulmonary Artery using Low Osmolar Contrast (ICD-10-PCS; 2021-02-23)
PROC: B3201ZZ Computerized Tomography (CT Scan) of Thoracic Aorta using Low Osmolar Contrast (ICD-10-PCS; 2021-02-23)
PROC: B32S1ZZ Computerized Tomography (CT Scan) of Right Pulmonary Artery using Low Osmolar Contrast (ICD-10-PCS; 2021-02-23)
DX: U07.1 COVID-19 (principal); I26.99 Other pulmonary embolism without acute cor pulmonale; J12.82 Pneumonia due to coronavirus disease 2019; J15.9 Unspecified bacterial pneumonia; K44.9 Diaphragmatic hernia without obstruction or gangrene; I10 Essential (primary) hypertension; G43.909 Migraine, unspecified, not intractable, without status migrainosus; E03.9 Hypothyroidism, unspecified; G62.9 Polyneuropathy, unspecified; I08.3 Combined rheumatic disorders of mitral, aortic and tricuspid valves; Z79.899 Other long term (current) drug therapy; Z98.84 Bariatric surgery status; Z91.013 Allergy to seafood; Z91.018 Allergy to other foods; Z88.2 Allergy status to sulfonamides; Z98.891 History of uterine scar from previous surgery
CPT/HCPCS: 36415; 71045; 71275; 80053; 80061; 83036; 83605; 83735; 83880; 84145; 84484; 85025; 85379; 85610; 85730; 86140; 87040; 87081; 93005; 93306; 94760; 99291; C9113; G0378; J0456; J0696; J1644; J2270; J7120; J8540; M0239; Q0239; Q0245; Q9967

== ENCOUNTER 2021-05-08 13:07 | Emergency (ER) | payer MEDICARE, MEDICAID ==
[~2021-05-08] VITALS: Ht 157.5 cm; Wt 95.0 kg
[~2021-05-08 13:07] MED LIST changes: +ALBU8.5H17 INH; +APIX5TAB3 PO; -ASPI-1 PO; -CETI-90 PO; +DEXA6TAB PO; -DICL100G30 TOP; -FLUT16SP2 BOTHNARES; -HYDR-4353 PO; +LACT1CAP26 PO; +LEVO112T5 PO; -LOSA25TA96 PO; +LOSA50TA64 PO; +MONT-40 PO; -MULT-1219 PO; -ONQPUMP ADDCANAL; -SUMA50TA PO; -SYN0.088T PO; +TRAZ-251 PO
[2021-05-08 13:55] LABS: BASOPHILS # (AUTO) 0.1 X10'3 (0-0.2); BASOPHILS % (AUTO) 0.9 % (0-1); EOSINOPHILS # (AUTO) 0.1 X10'3 (0-0.9); EOSINOPHILS % (AUTO) 2.5 % (0-6); HEMATOCRIT 33.7 % (35.0-45.0); HEMOGLOBIN 10.8 g/dl (12.0-16.0); LYMPHOCYTES # (AUTO) 1.8 X10'3 (1.1-4.8); LYMPHOCYTES % (AUTO) 31.1 % (21-51); MEAN CORPUSCULAR HEMOGLOBIN 26.9 PG (27.0-31.0); MEAN CORPUSCULAR VOLUME 84.1 FL (78-98); MEAN PLATELET VOLUME 7.4 FL (7.4-10.4); MONOCYTES # (AUTO) 0.5 X10'3 (0-0.9); MONOCYTES % (AUTO) 9.4 % (2-12); NEUTROPHILS # (AUTO) 3.2 X10'3 (1.8-7.7); NEUTROPHILS % (AUTO) 56.1 % (42-75); PLATELET COUNT 323 X10'3 (140-440); RED CELL DISTRIBUTION WIDTH 16.5 % (11.5-14.5); WHITE BLOOD COUNT 5.6 X10'3 (4.5-11.0)
[2021-05-08 14:11] LABS: ALANINE AMINOTRANSFERASE 14 U/L (12-78); ALBUMIN/GLOBULIN RATIO 0.8 (1.1-1.5); ALKALINE PHOSPHATASE 126 IU/L (46-116); ANION GAP 12 (8-16); ASPARTATE AMINO TRANSFERASE 19 U/L (10-37); BILIRUBIN,TOTAL 0.1 MG/DL (0.1-1.0); BLOOD UREA NITROGEN 14 MG/DL (7-18); BUN/CREATININE RATIO 12.4 (6.6-38.0); CALCIUM 8.6 MG/DL (8.5-10.1); CHLORIDE 106 MMOL/L (99-107); CREATININE 1.13 MG/DL (0.40-0.90); GLUCOSE 168 MG/DL (70-104); SODIUM 139 MMOL/L (135-145); TOTAL CARBON DIOXIDE 21.3 MMOL/L (24-32); TOTAL PROTEIN 6.8 G/DL (6.4-8.2); eGFR 48 ML/MIN
[2021-05-08 14:13] LABS: POTASSIUM 4.2 MMOL/L (3.5-5.1)
[2021-05-08] MEDS ORDERED: normal saline 1000ml 1,000 ML IV ONE (21:15)
[2021-05-08] MEDS ORDERED: iohexol 350MG/ML 100ml bottle IV ONE (21:18)
--- NOTE | 2021-05-08 22:27 | NUR ---
pt declined IVB. aware
[2021-05-08 22:39] VITALS: BP 145/100
== END 2021-05-08 22:42 | disposition home or self-care (01) ==
LOC: ER 13:07
DX: M54.89 Other dorsalgia (principal); R06.02 Shortness of breath; G43.909 Migraine, unspecified, not intractable, without status migrainosus; I10 Essential (primary) hypertension; E03.9 Hypothyroidism, unspecified; M19.90 Unspecified osteoarthritis, unspecified site; Z86.711 Personal history of pulmonary embolism; Z98.890 Other specified postprocedural states; Z88.1 Allergy status to other antibiotic agents; Z88.8 Allergy status to other drugs, medicaments and biological substances; Z91.013 Allergy to seafood; Z91.018 Allergy to other foods; Z79.899 Other long term (current) drug therapy
CPT/HCPCS: 36415; 71045; 71275; 80053; 83880; 84484; 85025; 93005; 99285; Q9967

== ENCOUNTER 2021-05-18 17:00 | Emergency (ER) | payer MEDICARE, MEDICAID ==
[~2021-05-18] VITALS: Ht 157.5 cm; Wt 90.0 kg
[2021-05-18] MEDS ORDERED: HYDROcodone/acetaminophen 10/325mg tab PO ONE (19:40)
[2021-05-18] MEDS ORDERED: HYDR-3965 PO (20:44)
[2021-05-18 20:52] VITALS: BP 132/78
== END 2021-05-18 21:06 | disposition home or self-care (01) ==
LOC: ER 17:01
DX: S82.871A Displaced pilon fracture of right tibia, initial encounter for closed fracture (principal); S82.831A Other fracture of upper and lower end of right fibula, initial encounter for closed fracture; S06.0X1A Concussion with loss of consciousness of 30 minutes or less, initial encounter; G43.909 Migraine, unspecified, not intractable, without status migrainosus; I10 Essential (primary) hypertension; E03.9 Hypothyroidism, unspecified; Z86.711 Personal history of pulmonary embolism; Z95.5 Presence of coronary angioplasty implant and graft; Z91.013 Allergy to seafood; Z91.018 Allergy to other foods; Z88.2 Allergy status to sulfonamides; Z79.899 Other long term (current) drug therapy; Z88.8 Allergy status to other drugs, medicaments and biological substances; W00.0XXA Fall on same level due to ice and snow, initial encounter; Y93.89 Activity, other specified; Y92.89 Other specified places as the place of occurrence of the external cause; Y99.8 Other external cause status
CPT/HCPCS: 29515; 70450; 72125; 72170; 73560; 73610; 73700; 99284

== ENCOUNTER 2021-10-25 08:46 | Emergency (ER) | payer MEDICARE, MEDICAID ==
[~2021-10-25] VITALS: Ht 157.5 cm; Wt 91.8 kg
[2021-10-25] MEDS ORDERED: normal saline 1000ML IV soln IVB ONE (09:15)
[2021-10-25 09:45] LABS: BASOPHILS % (AUTO) 0.4 % (0-1); EOSINOPHILS # (AUTO) 0.1 X10'3 (0-0.9); EOSINOPHILS % (AUTO) 0.9 % (0-6); HEMATOCRIT 34.3 % (35.0-45.0); HEMOGLOBIN 10.9 g/dl (12.0-16.0); LYMPHOCYTES % (AUTO) 17.9 % (21-51); MEAN CORPUSCULAR HEMOGLOBIN 24.5 PG (27.0-31.0); MEAN CORPUSCULAR HGB CONC 31.9 g/dL (33.0-36.5); MEAN CORPUSCULAR VOLUME 76.8 FL (78-98); MONOCYTES # (AUTO) 1.2 X10'3 (0-0.9); MONOCYTES % (AUTO) 10.3 % (2-12); NEUTROPHILS # (AUTO) 7.9 X10'3 (1.8-7.7); NEUTROPHILS % (AUTO) 70.5 % (42-75); PLATELET COUNT 401 X10'3 (140-440); RED BLOOD COUNT 4.46 X10'6 (4.20-5.60); RED CELL DISTRIBUTION WIDTH 16.9 % (11.5-14.5); WHITE BLOOD COUNT 11.2 X10'3 (4.5-11.0)
[2021-10-25 09:52] LABS: APTT 23 SECONDS (22-32)
[2021-10-25 09:56] LABS: ALANINE AMINOTRANSFERASE 21 U/L (12-78); ALBUMIN 3.2 G/DL (3.4-5.0); ALBUMIN/GLOBULIN RATIO 0.8 (1.1-1.5); ALKALINE PHOSPHATASE 80 IU/L (46-116); ANION GAP 11 (8-16); ASPARTATE AMINO TRANSFERASE 12 U/L (10-37); BILIRUBIN,TOTAL 0.2 MG/DL (0.1-1.0); BLOOD UREA NITROGEN 21 MG/DL (7-18); BUN/CREATININE RATIO 21.2 (6.6-38.0); CALCIUM 8.5 MG/DL (8.5-10.1); CHLORIDE 102 MMOL/L (99-107); CREATININE 0.99 MG/DL (0.40-0.90); GLUCOSE 99 MG/DL (70-104); POTASSIUM 3.9 MMOL/L (3.5-5.1); SODIUM 138 MMOL/L (135-145); TOTAL CARBON DIOXIDE 25.4 MMOL/L (24-32); eGFR 56 ML/MIN
[2021-10-25 10:02] LABS: MAGNESIUM 1.9 MG/DL (1.5-2.4)
[2021-10-25] MEDS ORDERED: iohexol 350MG/ML 100ml bottle IV ONE (10:03)
[2021-10-25] MEDS ORDERED: dexamethasone 4mg tablet PO ONE (12:10)
[2021-10-25] MEDS ORDERED: DEXA6TAB6 PO (12:13)
[2021-10-25 12:14] VITALS: BP 159/89
== END 2021-10-25 12:35 | disposition home or self-care (01) ==
LOC: ER 08:46
DX: U09.9 Post COVID-19 condition, unspecified (principal); R06.00 Dyspnea, unspecified; I26.99 Other pulmonary embolism without acute cor pulmonale; G43.909 Migraine, unspecified, not intractable, without status migrainosus; I10 Essential (primary) hypertension; E03.9 Hypothyroidism, unspecified; M19.90 Unspecified osteoarthritis, unspecified site; Z86.711 Personal history of pulmonary embolism; Z98.890 Other specified postprocedural states; Z88.8 Allergy status to other drugs, medicaments and biological substances; Z91.013 Allergy to seafood; Z79.899 Other long term (current) drug therapy
CPT/HCPCS: 36415; 71275; 80053; 83735; 83880; 85025; 85610; 85730; 93005; 93306; 96360; 99285; J3490; J7030; Q9967

== ENCOUNTER 2021-12-22 09:24 | Emergency (ER) | payer MEDICARE, MEDICAID ==
[~2021-12-22] VITALS: Ht 157.5 cm; Wt 90.0 kg
[~2021-12-22 09:24] MED LIST changes: +DEXA6TAB6 PO; +ONDA4TAB12 PO
[2021-12-22 09:44] VITALS: BP 122/83
[2021-12-22] MEDS ORDERED: dexamethasone sod phosphate 10mg/ml inj IM STA (09:46)
[2021-12-22] MEDS ORDERED: NYST30CR35 TP (10:09)
[2021-12-22] MEDS ORDERED: FLUC200T PO (10:09)
[2021-12-22] MEDS ORDERED: NYST1000 PO (10:09)
== END 2021-12-22 10:33 | disposition home or self-care (01) ==
LOC: ER 09:28
DX: B37.0 Candidal stomatitis (principal); B37.3 Candidiasis of vulva and vagina; M79.18 Myalgia, other site; M19.90 Unspecified osteoarthritis, unspecified site; N39.0 Urinary tract infection, site not specified; J02.9 Acute pharyngitis, unspecified; R06.02 Shortness of breath; G43.909 Migraine, unspecified, not intractable, without status migrainosus; I10 Essential (primary) hypertension; E03.9 Hypothyroidism, unspecified; Z86.711 Personal history of pulmonary embolism; Z98.890 Other specified postprocedural states; Z88.8 Allergy status to other drugs, medicaments and biological substances; Z91.013 Allergy to seafood; Z79.899 Other long term (current) drug therapy
CPT/HCPCS: 96372; 99283; J1100

== ENCOUNTER 2023-09-02 11:25 | Emergency (ER) | payer MEDICARE, MEDICAID ==
[~2023-09-02] VITALS: Ht 157.5 cm; Wt 94.5 kg
[~2023-09-02 11:25] MED LIST changes: +ALBU18HF2 INH; -ALBU8.5H17 INH; +ASCO500C18 PO; +BUDE10.22 INH; -DEXA6TAB PO; -DEXA6TAB6 PO; -GABA300C PO; +HYDR-3964 PO; -LOSA50TA64 PO; +NYST15CR37 TOP; +OMEP40CA21 PO; -ONDA4TAB12 PO; +SOTA80TA73 PO
[2023-09-02] MEDS ORDERED: CELE-127 PO (11:35)
[2023-09-02] MEDS ORDERED: DULO60CA65 PO (11:35)
[2023-09-02] MEDS ORDERED: LOSA50TA64 PO (11:35)
[2023-09-02] MEDS ORDERED: PANT40TA54 PO (11:35)
[2023-09-02] MEDS ORDERED: FOLI1TAB27 PO (11:35)
[2023-09-02] MEDS ORDERED: LEFL10TA20 PO (11:35)
[2023-09-02 11:39] VITALS: BP 157/87; PULSE 78; TEMP 98.1; O2SAT 97
[2023-09-02 13:15] LABS: BASOPHILS % (AUTO) 0.8 % (0-1); EOSINOPHILS # (AUTO) 0.1 X10'3 (0-0.9); EOSINOPHILS % (AUTO) 2.1 % (0-6); HEMOGLOBIN 10.2 g/dl (12.0-16.0); LYMPHOCYTES # (AUTO) 1.8 X10'3 (1.1-4.8); LYMPHOCYTES % (AUTO) 30.1 % (21-51); MEAN CORPUSCULAR HEMOGLOBIN 26.8 PG (27.0-31.0); MEAN CORPUSCULAR HGB CONC 31.9 g/dL (33.0-36.5); MEAN PLATELET VOLUME 7.3 FL (7.4-10.4); MONOCYTES # (AUTO) 0.9 X10'3 (0-0.9); MONOCYTES % (AUTO) 15.5 % (2-12); NEUTROPHILS # (AUTO) 3.1 X10'3 (1.8-7.7); NEUTROPHILS % (AUTO) 51.5 % (42-75); PLATELET COUNT 283 X10'3 (140-440); RED BLOOD COUNT 3.82 X10'6 (4.20-5.60); RED CELL DISTRIBUTION WIDTH 20.5 % (11.5-14.5)
[2023-09-02] MEDS: metoclopramide 5 mg/ml inj IV ONE (13:20)
[2023-09-02] MEDS: ketorolac tromethamine 15mg/ml inj. IV ONE (13:20)
[2023-09-02] MEDS: normal saline 1000ml 1,000 ML IV ONE (13:20)
[2023-09-02 13:29] LABS: ALANINE AMINOTRANSFERASE 18 U/L (12-78); ALBUMIN/GLOBULIN RATIO 0.7 (1.1-1.5); ALKALINE PHOSPHATASE 114 IU/L (46-116); ANION GAP 9 (8-16); ASPARTATE AMINO TRANSFERASE 14 U/L (10-37); BILIRUBIN,TOTAL 0.2 MG/DL (0.1-1.0); BLOOD UREA NITROGEN 13 MG/DL (7-18); BUN/CREATININE RATIO 11.6 (10.0-20.0); CALCIUM 7.7 MG/DL (8.5-10.1); CHLORIDE 109 MMOL/L (99-107); CREATININE 1.12 MG/DL (0.40-0.90); GLUCOSE 75 MG/DL (70-104); POTASSIUM 3.9 MMOL/L (3.5-5.1); SODIUM 142 MMOL/L (135-145); TOTAL CARBON DIOXIDE 23.8 MMOL/L (24-32); TOTAL PROTEIN 7.1 G/DL (6.4-8.2); eCRCL 38 ML/MIN; eGFR 48 ML/MIN
[2023-09-02 14:12] LABS: PLATELET ESTIMATE NORMAL
[2023-09-02 14:13] LABS: ANISOCYTOSIS 3+; ELLIPTOCYTES 1+; HYPOCHROMASIA 1+; POLYCHROMASIA 1+; TEAR DROP CELLS FEW
[2023-09-02 15:00] VITALS: RESP 18
== END 2023-09-02 15:06 | disposition home or self-care (01) ==
LOC: ER 11:27
DX: G44.009 Cluster headache syndrome, unspecified, not intractable (principal); I12.9 Hypertensive chronic kidney disease with stage 1 through stage 4 chronic kidney disease, or unspecified chronic kidney disease; N18.9 Chronic kidney disease, unspecified; E03.9 Hypothyroidism, unspecified; M19.90 Unspecified osteoarthritis, unspecified site; Z86.711 Personal history of pulmonary embolism; Z91.013 Allergy to seafood; Z88.8 Allergy status to other drugs, medicaments and biological substances; Z91.018 Allergy to other foods
CPT/HCPCS: 36415; 70450; 80053; 83735; 84484; 85008; 85025; 93005; 96361; 96374; 96375; 99285; J1885; J2765; J7030